=== PATIENT | female | born 2005 | race Caucasian/White ===

== ENCOUNTER 2025-06-06 14:28 | Outpatient (CLI) | payer OTHER ==
--- NOTE | 2025-06-06 18:44 | RADIOLOGY REPORT ---
EXAM: MR MRI LOWER EXTREMITY LEFT HISTORY: OTH TEAR OF MEDIAL MENISCU COMPARISON: None TECHNIQUE: Multiplanar, multisequence imaging of the left knee was performed without contrast FINDINGS: MEDIAL COMPARTMENT: Intact medial meniscus. No focal chondrosis or subchondral edema. LATERAL COMPARTMENT: Discoid lateral meniscus without discrete tear. Bone marrow edema of the lateral femoral condyle. PATELLOFEMORAL COMPARTMENT: No focal chondrosis. Kissing bone contusion pattern of the medial patella to median ridge CRUCIATE LIGAMENTS: Intact anterior and posterior cruciate ligaments. MEDIAL SUPPORTING STRUCTURES: Intact medial collateral ligament. LATERAL SUPPORTING STRUCTURES: Intact iliotibial band, lateral capsular ligament, fibular collateral ligament, popliteus, and biceps femoris tendons EXTENSOR MECHANISM: Intact. Tibial tubercle trochlear groove distance abnormal measuring 20 mm. JOINT SPACE/FLUID: No joint effusion. BONES: No acute fracture, osseous contusion, or aggressive focal osseous lesion MUSCLES: Normal in signal intensity and morphology NEUROVASCULAR: Unremarkable OTHER: None IMPRESSION: 1. Kissing bone contusion pattern compatible with transient patellar dislocation relocation without discrete fracture plane. 2. No meniscal or cruciate ligamentous tear. 3. Discoid lateral meniscus. 4. Tibial tubercle trochlear groove distance abnormal measuring 20 mm.
== END 2025-06-06 23:59 | disposition home or self-care (01) ==
LOC: MRI02 14:28
PROVIDERS: ATTEND Student in an Organized Health Care Education/Training Program
DX: S83.242A Other tear of medial meniscus, current injury, left knee, initial encounter (principal); S80.02XA Contusion of left knee, initial encounter; X58.XXXA Exposure to other specified factors, initial encounter; Y93.89 Activity, other specified; Y92.89 Other specified places as the place of occurrence of the external cause; Y99.8 Other external cause status
CPT/HCPCS: 73721